=== PATIENT | female | born 1975 | race Hispanic/Latino ===

== ENCOUNTER 2016-12-06 12:51 | Day surgery (SDC) | payer OTHER ==
[2016-12-06] VITALS (9 sets, daily range): BP systolic 101–115; BP diastolic 43–67; PULSE 72–82; RESP 13–17; O2SAT 95–100
[~2016-12-06] VITALS: Ht 147.3 cm; Wt 64.9 kg
[~2016-12-06 12:51] MED LIST: CeFAZolin Inj 2 GM in IV Premix 1 EACH IV ONE; HYDR-4003 PO; PNV1TABL9 PO; iron
[2016-12-06] MEDS ORDERED: Propofol 10,000 mCg/mL 20 mL Inj ONE (12:52)
[2016-12-06] MEDS ORDERED: fentaNYL-PF 50 mCg/mL 2 mL Inj ONE (12:52)
[2016-12-06] MEDS ORDERED: Ondansetron 2 mg/mL 2 mL Inj ONE (12:52)
[2016-12-06] MEDS ORDERED: Dexamethasone 4 mg/mL Inj ONE (12:52)
[2016-12-06] MEDS ORDERED: Lactated Ringer's 1,000 ML IV ONE (13:01)
[2016-12-06] MEDS ORDERED: CeFAZolin Inj 2 gm / 50mL D5W IV ONE (14:25)
[2016-12-06] MEDS ORDERED: Lactated Ringer's 1,000 ML IV SCH (17:17)
[2016-12-06] MEDS ORDERED: Lactated Ringer's 500 ML IV PRN (17:17)
--- NOTE | 2016-12-06 17:17 | PCM.HPANE ---
Patient Data Date of Service: Dec 06, 2016 (1267) Surgeon Admitting Provider: Attending Provider:Maxi Schmitt DO Primary Care Physician:Cary Iqbal MD Other Provider: Reason for Visit Left Foot Dislocation & Fracture Ht/WT & BMI Height (Feet): 4 Height (Inches): 10 Weight (Kilograms): 64.9 Body Mass Index 30.00 Allergies Coded Allergies: No Known Allergies (Verified , 12/06/16) Past Anesthesia History Anesthesia History: Denies:: Anesthesia Reactions Diabetes History Hx Diabetes?: No MRSA MRSA: No Medications Hypertension Medication: No Home Meds Incl Beta Dwayne: No Reported Medications Hydrocodone-Acetaminophen 5-325 mg 1 Each Tablet1 Tablet PO Q8H PRN For Pain Ref 0 12/05/16 [iron ] unknown No Conflict Check1 Tab DAILY 12/05/16 Pnv Cmb#21/Iron/Folic Acid ( Complete Caplet)1 Each Tablet1 Each PO DAILY 12/05/16 History History of ENT Problems?: No HEENT History: Denies:: Cataracts Glaucoma Hearing Problem Denture Type: None Teeth Condition: Within Normal Limits Hx of Heart Problems?: No Cardiovascular History: Denies:: AICD Edema Heart Murmur Hypertension Irregular Heartbeat Pacemaker Peripheral Vascular Hx of Respiratory Problem?: No Respiratory History: Denies:: Asthma COPD Emphysema Oxygen Administration Pneumonia Use of C-PAP Machine Use of Inhalers / NEBS Hx Neurologic Problems?: No Neurological History: Denies:: Alzheimer's Disease CVA Hx of GI Problems?: No Gastrointestinal History: Denies:: Cirrhosis Hepatitis Hx of Problems?: No Genitourinary History: Denies:: HX of Hemodialysis Kidney Stones Urinary Tract Infection HX of Peritoneal Dialysis: No Female Hx: Denies:: Currently Endometriosis Pelvic Inflammatory Problems with Breasts? Skin History: Denies:: History Skin Disorders? Pressure Ulcers Hx Musculoskeletal Problems?: Yes Musculoskeletal History: Positive for:: Musculoskeletal Trauma (trauma left foot current admission problem- fracture left foot) Denies:: Back Injury Hx of Psycho/Social Problems?: No Psycho Social History: Denies:: Anxiety Hx Surgeries?: No Hx Any Other Health Problems?: Yes Other History: Denies:: Cancer Thyroid Disease History Blood Transfusions: Denies:: Accept Blood Products? Blood Transfuse Reaction Blood Transfusions Hx Diabetes: No Hx Alcohol Use: NoHx Substance Use: NoHave You Smoked inLast 12 mo: No Stop/Bang S-Snoring: Do You Snore Loudly: No T-Tired: feel tired, fatigued: No O-Obsered: Observed not breath: No P-Blood Pressure: treated: No B- Body Mass Index > 35 kg/m2: No A- Age over 50: No N- Neck Large Circumference: No G- Gender Male: No LIANE Total Score: 0 LIANE Risk Assessment: Low Risk, <3 Yes Risk Assessment Category Category 1A: Patient has history of documented sleep apnea, and HAS NOT received any narcotic, sedative or anesthesia administration during this stay. Category 1B: Patient has history of documented sleep apnea, and HAS received any narcotic , sedative or anesthesia administration during this stay Category 2: Patient has SUSPECTED Obstructive Sleep Apnea, and HAS received any narcotic , sedative or anesthesia administration during this stay. Category 3: Patient has SUSPECTED Obstructive Sleep Apnea and HAS NOT received narcotic, sedative or anesthesia administration during this stay. Category 4: Outpatient in Procedural Areas with known sleep apnea or who screen positive for High Risk via the STOP/BANG questionnaire. Exam Exam Vital Signs Vital Signs Date Time Temp Pulse Resp B/P Pulse Ox O2 Delivery O2 Flow Rate FiO2 12/06/16 13:21 36.7 73 16 107/63 97 Room Air General Appearance: Alert, Oriented X3 HEENT/AIRWAY: MP 3 Lungs: Clear to Auscultation Heart: Exam Unremarkable Meds/Labs/Diagnostics Admission Meds Current Medications Lactated Ringer's (Lr) 1,000 ml @ ud STK-MED ONCE IV Last administered on 12/06t 13:01; Start 12/06/16 at 13:01; Stop 12/06/16 at 13:02; Status DC Plan Impression Patient chart reviewed, patient interviewed and anesthestic plan with risks, benefits, and alternatives discussed, and informed consent obtained. NPO per Anesth. Guidelines: Yes ASA Physical Status: ASA2 Mod Systemic Disease Anesthetic Plan: GA Bene/Risks/Altern/Consents: Yes HP Complete Prior to Induction: Yes Jose Velazquez MD Dec 06, 2016 17:17
[2016-12-06] MEDS ORDERED: Dexamethasone 4 mg/mL Inj IVPUSH PRN (17:20)
[2016-12-06] MEDS ORDERED: EPHEDrine Sulfate 50 mg/mL Inj IVPUSH PRN (17:20)
[2016-12-06] MEDS ORDERED: MetoCLOpramide 5 mg/mL 2 mL Inj IVPUSH PRN (17:20)
[2016-12-06] MEDS ORDERED: HYDROmorphone 1 mg/mL Inj IVPUSH PRN (17:20)
[2016-12-06] MEDS ORDERED: fentaNYL-PF 50 mCg/mL 2 mL Inj IVPUSH PRN (17:20)
[2016-12-06] MEDS ORDERED: Phenylephrine 10,000 mCg/mL Inj IVPUSH PRN (17:20)
[2016-12-06] MEDS ORDERED: Ondansetron 2 mg/mL 2 mL Inj IVPUSH PRN (17:20)
[2016-12-06] MEDS ORDERED: Bupivacaine-MPF 0.25%/EPI 30 mL Inj INJ ONE (18:02)
--- NOTE | 2016-12-06 18:35 | PCM.ANEP1 ---
Post Anesthesia Phase 1 PACU Phase 1 Assessment Date of Service: Dec 06, 2016 (4378) Vital Signs 36.3, 101/43, 79, 12, 98%, Vital Signs Date Time Temp Pulse Resp B/P Pulse Ox O2 Delivery O2 Flow Rate FiO2 12/06/16 13:21 36.7 73 16 107/63 97 Room Air Anesthetic Administered: GA Level of Alertness: Sleepy, easy to arouse KEITH's with Equal Strength: Yes Pain: No Nausea or Vomiting: No Cardiovascular Function and Hy: Yes Oxygen Delivery: Simple Mask Lungs: Clear to Auscultation Dermatome Level: Full Sensation Summary UNEVENTFUL GA Complications: No Follow up Care: No Jose Velazquez MD Dec 06, 2016 18:35
[2016-12-06] MEDS ORDERED: hydrOXYzine Pamoate 25 mg Capsule PO PRN (18:40)
[2016-12-06] MEDS ORDERED: HYDROcodone-APAP 5-325 mg Tablet PO PRN (18:40)
--- NOTE | 2016-12-06 23:32 | OP ---
[address] [address] OPERATIVE REPORT PATIENT: ARIANA CORRAL : 1975 MR#: [id number] ADMIT: 12/06/2016 JOB ID: [id number] DATE OF SURGERY: 12/06/2016 PREOPERATIVE DIAGNOSIS(ES): Left 4th and 5th tarsometatarsal joint dislocation. POSTOPERATIVE DIAGNOSIS(ES): Left 4th and 5th tarsometatarsal joint dislocation with cuboid fracture. PROCEDURE: Left foot closed reduction percutaneous pinning of 4th and 5th tarsometatarsal joint dislocation and cuboid fracture. SURGEON: Maxi Schmitt DO. ANESTHESIA: General. INDICATIONS: The patient is a 41-year-old female whose foot was run over by a piece of farm equipment, sustaining a left tarsometatarsal joint dislocation yesterday. We had a CT scan confirming the diagnosis. We discussed treatment options for this. She wished to proceed with closed reduction percutaneous pinning, possible open reduction, internal fixation. We discussed the risks, benefits and possible complications of surgery using an green chain puller. All questions were answered. She wished to proceed. PROCEDURE IN DETAIL: The patient was brought to the operating room. She was given a preoperative antibiotic and general anesthetic. The left foot was sterilely prepped and draped, and the lateral metatarsals reduced quite easily with simply some traction. I confirmed the reduction with biplane fluoroscopy and then added percutaneous fixation with a pin from the 5th metatarsal base into the cuboid, second pin from the 4th ray into the lateral cuneiform and an additional pin crossing the 4th metatarsal into the cuneiform. The pins were then cut to appropriate length. Again, biplane fluoroscopy was used to confirm the reduction. I did not feel that we needed to open the foot as she was quite swollen and I felt that the reduction was excellent on image. Therefore, an ankle block was performed with Marcaine. Sterile dressings and a splint with toe plate were applied. Patient tolerated the procedure well. Blood loss was minimal. POSTOPERATIVE PROTOCOL: Have the patient remain nonweightbearing, ice and elevate, and follow up in the clinic in two weeks or sooner if needed for recheck, with splint removal and placement into a short-leg cast, the toe plate for four additional weeks, six weeks total, and then follow back up with x-rays and pin removal at that time with myself. She is given a prescription for [place] 5/325 for pain.
--- NOTE | 2016-12-07 00:17 | NUR ---
Arrival to Room 1018 Patient arrived to room 1018 via [facility] at approximately 2020 accompanied by Marvin from PACU and . Patient is maldivian speaking only. Lead Instructor/Flight Attendant machine brought in for questions and answers. Patient denied pain and nausea. Patient able to tolerate water, crackers, and peanut butter. Patient voided x1. Crutches use was demonstrated to patient but because patient only had flip flops to walk in, it was determined that she would practice at home. VSS. Patient was instructed to dress. Patient ok to discharge.
--- NOTE | 2016-12-07 12:04 | DRSVH ---
PROCEDURE: X-RAY LEFT FOOT, TWO VIEWS ([id number]) INDICATIONS: C-ARM ASSISTED LEFT FOOT ORIF TECHNIQUE: Three views of the foot were acquired. COMPARISON: [facility], CT, CT FOOT LT WO CON, 12/05/2016, 13:39. [facility], CR, XR FOOT 3VW LT, 12/05/2016, 10:39. FINDINGS: Bones: Improved alignment status post open reduction internal fixation of fourth and fifth metatarsa l base fractures/dislocations. Three surgical K wires are present traversing the fourth and fifth me tatarsal bases and noted within the cuboid, middle cuneiform bone as well as the tarsonavicular bone. Fractures of the second and third metatarsal heads redemonstrated, not significantly changed in ali gnment. Soft tissues: No tibiotalar joint effusion. Achilles tendon appears normal. IMPRESSION: 1. Improved alignment status post ORIF of fourth and fifth metatarsal base fracture/dislocation with no significant change in second and third metatarsal head/neck fractures. Dictated by: Chad Jose [facility] Interpreted: Alphonso Flowers MD on 12/07/2016 at 10:19 Transcribed by: HEMA on 12/07/2016 at 15:03 Approved by: Alphonso Flowers M.D. on 12/07/2016 at 15:40
== END 2016-12-06 21:36 | disposition home or self-care (01) ==
LOC: SAS 12:51 → OSC 20:03 → SAS 21:36
PROVIDERS: ATTEND Orthopaedic Surgery
DX: S92.212A Displaced fracture of cuboid bone of left foot, initial encounter for closed fracture (principal); S93.325A Dislocation of tarsometatarsal joint of left foot, initial encounter; W30.9XXA Contact with unspecified agricultural machinery, initial encounter; Y93.01 Activity, walking, marching and hiking; Y92.79 Other farm location as the place of occurrence of the external cause; Y99.0 Civilian activity done for income or pay
CPT/HCPCS: 28456; 28606; 73620; 76000; 97162; J0690; J1100; J1885; J2250; J2405; J3010; J7120